=== PATIENT | female | born 1985 | race Caucasian/White ===

== ENCOUNTER 2022-09-25 23:12 | Inpatient (IN) | payer BC, OTHER ==
[2022-09-25] MEDS ORDERED: NS w/ Oxytocin 30 units 500 ML IV SCH (23:45)
[2022-09-25] MEDS ORDERED: Ibuprofen 800 MG TAB PO PRN (23:59)
[2022-09-25] MEDS ORDERED: HYDROcodone/Acetaminophen 5/325 mg Tablet PO PRN ×2 (23:59)
[2022-09-25] MEDS ORDERED: Lidocaine 1% (PF) 30 ML VIAL SC PRN (23:59)
[2022-09-26] MEDS ORDERED: Acetaminophen 500 MG TAB PO PRN
[2022-09-26] MEDS ORDERED: fentaNYL 50 mcg/mL 1 mL Vial SLOW IVP PRN
[2022-09-26 00:05] VITALS: BMI 35.6
[2022-09-26] MEDS ORDERED: Gentamicin 80 MG/2 ML VIAL IVPB SCH (00:45)
[2022-09-26] MEDS ORDERED: Gentamicin Sulfate 80 MG in Premix Bag 1 BAG IVPB SCH (01:00)
[2022-09-26 01:23] LABS: Hematocrit 30.5 % (34.9-44.5); Mean Corpuscular HGB CONC 32.8 g/dL (32.0-36.0); Mean Corpuscular Hemoglobin 27.9 pg (27.0-33.0); Mean Platelet Volume 8.9 fl (7.4-10.4); Platelet Count 301 10x3/uL (150-450); RBC Distribution Width 15.4 % (11.5-14.5); Red Blood Cell (RBC) Count 3.59 10x6/uL (3.90-5.03); White Blood Cell (WBC) Count 11.1 10x3/uL (3.5-10.5)
[2022-09-26] MEDS: Lactated Ringer's 1,000 ML IV SCH ×2 (01:30→09:00)
[2022-09-26 01:54] LABS: HBSAg Index 0.19 S/CO (0-0.99); Hep B Surf Ag - L&D Non-Reactive S/CO (NonReactive); Syphilis Antibody Nonreactive (Nonreactive); Syphilis Antibody Index 0.05 S/CO (<1.00 Non-Reactive)
[2022-09-26] MEDS: Clindamycin/D5W 900 MG in Premix Bag 1 BAG IVPB SCH ×2 (04:14→14:19)
[2022-09-26] MEDS ORDERED: Famotidine/PF 20 mg/2ml Vial ONE (07:25)
[2022-09-26] MEDS ORDERED: Bupivacaine 0.25% HCL 30 ML VIAL ONE (08:00)
[2022-09-26] MEDS ORDERED: Bupivacaine PF 0.5% 30 ML VIAL ONE (08:00)
[2022-09-26] MEDS ORDERED: fentaNYL/Ropivacaine Epidural 100 ML ONE (08:31)
[2022-09-26] MEDS ORDERED: Sertraline 100 MG TAB PO SCH ×2 (11:00→21:00)
[2022-09-26] MEDS ORDERED: lamoTRIgine 100 MG TAB PO SCH ×2 (11:00→21:00)
[2022-09-26] MEDS ORDERED: Moisturizing Cream (Eucerin) 113 GM JAR TOP PRN ×2 (11:24→13:51)
[2022-09-26] MEDS ORDERED: Promethazine HCl 25 MG/ML VIAL IM PRN ×3 (11:24→13:51)
[2022-09-26] MEDS ORDERED: Naloxone HCl 0.4 mg/ml Vial IVP PRN ×4 (11:24→13:51)
[2022-09-26] MEDS ORDERED: Acetaminophen 325 MG TAB PO PRN ×2 (11:24→13:51)
[2022-09-26] MEDS ORDERED: diphenhydrAMINE 50 MG/ML VIAL IVP PRN ×2 (11:24→13:51)
[2022-09-26] MEDS ORDERED: Ondansetron PF 4 MG/2 ML Vial IVP PRN ×4 (11:24→21:55)
[2022-09-26] MEDS ORDERED: Lactated Ringer's 500 ML IV PRN ×2 (11:24→13:51)
[2022-09-26] MEDS ORDERED: ePHEDrine Sulfate 50 MG/10 ML VIAL SLOW IVP PRN ×2 (11:24→13:51)
[2022-09-26] MEDS ORDERED: fentaNYL 2 mcg/Ropivacaine 0.2% Epidural 100 ML CADD EPIDURAL SCH ×4 (11:30→14:00)
[2022-09-26] MEDS ORDERED: Communication Order-Pharmacy FS SCH ×2 (11:30→14:00)
[2022-09-26] MEDS ORDERED: fentaNYL 50 mcg/mL 1 mL Vial ONE (20:14)
[2022-09-26] MEDS ORDERED: Methylergonovine 0.2 MG/ML VIAL ONE (21:14)
[2022-09-26] MEDS ORDERED: Carboprost 250 MCG/ML AMP ONE (21:14)
[2022-09-26] MEDS ORDERED: Misoprostol 200 MCG TAB ONE (21:15)
[2022-09-26] MEDS ORDERED: Benzocaine-Menthol 82.5 ML CAN TOP PRN (21:55)
[2022-09-26] MEDS ORDERED: diphenhydrAMINE 25 MG CAP PO PRN (21:55)
[2022-09-26] MEDS ORDERED: Zolpidem Tartrate 5 MG TAB PO PRN ×2 (21:55)
[2022-09-26] MEDS ORDERED: hydrALAZINE 20 MG/ML VIAL SLOW IVP PRN ×2 (21:55)
[2022-09-26] MEDS ORDERED: Preparation H Ointment 28 GM TUBE PR PRN (21:55)
[2022-09-26] MEDS ORDERED: Boostrix 0.5 ML (Tdap) VIAL (>/=7 yrs of age) IM ONE (21:55)
[2022-09-26] MEDS ORDERED: Lanolin Ointment 7 GM TUBE TOP PRN (21:55)
[2022-09-26] MEDS ORDERED: Bisacodyl 10 MG SUPP PR PRN (21:55)
[2022-09-26] MEDS ORDERED: Milk Of Magnesia 30 ML UDCUP PO PRN (21:55)
[2022-09-26] MEDS ORDERED: Misoprostol 200 MCG TAB VAG PRN (21:55)
[2022-09-26] MEDS ORDERED: HYDROcodone/Acetaminophen 5/325 mg Tablet PO PRN ×2 (21:55)
[2022-09-26 22:04] LABS: RapidComm Collect By CBN; pH (Cord, venous) 7.296 (7.250-7.350)
[2022-09-26] MEDS ORDERED: NS w/ Oxytocin 30 units 500 ML IV SCH ×2 (22:15)
[2022-09-27] MEDS: Ibuprofen 800 MG TAB PO SCH ×4 (01:18→21:39)
[2022-09-27 04:04] LABS: #Monocytes 0.8 10x3/uL (0.0-1.1); #Neutrophils 16.7 10x3/uL (1.5-8.4); %Basophils 0.2 % (0.0-2.0); %Eosinophils 0.1 % (0.0-6.0); %Lymphocytes 5.6 % (18.0-47.0); %Neutrophils 89.6 % (40.0-75.0); Hematocrit 29.7 % (34.9-44.5); Hemoglobin 9.6 g/dL (12.0-15.5); Mean Corpuscular HGB CONC 32.3 g/dL (32.0-36.0); Mean Corpuscular Hemoglobin 27.3 pg (27.0-33.0); Mean Corpuscular Volume 84.4 fl (81.6-98.3); Mean Platelet Volume 9.2 fl (7.4-10.4); Platelet Count 276 10x3/uL (150-450); RBC Distribution Width 15.4 % (11.5-14.5); Red Blood Cell (RBC) Count 3.52 10x6/uL (3.90-5.03); White Blood Cell (WBC) Count 18.7 10x3/uL (3.5-10.5)
[2022-09-27] MEDS ORDERED: Sertraline 100 MG TAB PO SCH (09:00)
[2022-09-27] MEDS: Sertraline 100 MG TAB PO SCH ×2 (09:04→21:42)
[2022-09-27] MEDS: Ferrous Sulfate 325 MG TAB PO SCH ×2 (09:04→21:41)
[2022-09-27] MEDS: Docusate 100 MG CAP PO SCH ×2 (09:04→21:41)
[2022-09-27] MEDS: Prenatal Vitamin 1 TAB PO SCH (09:04)
[2022-09-27] MEDS: lamoTRIgine 100 MG TAB PO SCH ×2 (09:04→21:43)
[2022-09-27] MEDS: Clindamycin/D5W 900 MG in Premix Bag 1 BAG IVPB SCH (20:41)
[2022-09-27] MEDS: Lactated Ringer's 1,000 ML IV SCH (20:41)
[2022-09-28] MEDS: Ibuprofen 800 MG TAB PO SCH ×2 (05:02→14:17)
[2022-09-28 07:55] VITALS: BP 117/58; TEMP 98
[2022-09-28] MEDS: Sertraline 100 MG TAB PO SCH (08:40)
[2022-09-28] MEDS: Prenatal Vitamin 1 TAB PO SCH (08:40)
[2022-09-28] MEDS: Docusate 100 MG CAP PO SCH (08:40)
[2022-09-28] MEDS: Ferrous Sulfate 325 MG TAB PO SCH (08:40)
[2022-09-28] MEDS: lamoTRIgine 100 MG TAB PO SCH (08:40)
== END 2022-09-28 17:10 | disposition home or self-care (01) | DRG 806 ==
LOC: CSHLD/OP 23:12 → CSHLD 09-26 00:37 → CSHPP 09-27 00:25
PROVIDERS: ADMIT Obstetrics & Gynecology; ATTEND Obstetrics & Gynecology
PROC: 10D07Z6 Extraction of Products of Conception, Vacuum, Via Natural or Artificial Opening (ICD-10-PCS; principal; 2022-09-26)
PROC: 10907ZC Drainage of Amniotic Fluid, Therapeutic from Products of Conception, Via Natural or Artificial Opening (ICD-10-PCS; 2022-09-26)
PROC: 10H07YZ Insertion of Other Device into Products of Conception, Via Natural or Artificial Opening (ICD-10-PCS; 2022-09-26)
PROC: 0HQ9XZZ Repair Perineum Skin, External Approach (ICD-10-PCS; 2022-09-26)
DX: O24.429 Gestational diabetes mellitus in childbirth, unspecified control (principal); O99.354 Diseases of the nervous system complicating childbirth; Z37.0 Single live birth; G40.909 Epilepsy, unspecified, not intractable, without status epilepticus; Z3A.38 38 weeks gestation of pregnancy; O69.81X0 Labor and delivery complicated by cord around neck, without compression, not applicable or unspecified; O99.892 Other specified diseases and conditions complicating childbirth; R00.1 Bradycardia, unspecified; O70.0 First degree perineal laceration during delivery
CPT/HCPCS: 36415; 51702; 82805; 85025; 85027; 86780; 86850; 86900; 86901; 87340; 99285; J1580; J2590; J3490; J7120; S0020